=== PATIENT | male | born 1975 | race Caucasian/White ===

== ENCOUNTER 2021-09-22 19:48 | Observation (INO) ==
[2021-09-22] MEDS ORDERED: 0.9 % Sodium Chloride 1,000 ML IV ONE (20:20)
[2021-09-22 20:39] LABS: Basophils # 0.1 K/mcL (0.0-0.2); Basophils % 0.8 %; Eosinophils # 0.4 K/mcL (0.0-0.6); Eosinophils % 4.3 %; Hematocrit 41.7 % (37.5-50.1); Hemoglobin 14.4 g/dL (12.9-16.9); Immature Granulocytes % 0.7 % (0-4); Lymphocytes # 1.2 K/mcL (0.6-4.6); Lymphocytes % 13.5 %; Mean Corpuscular HGB Conc 34.5 g/dL (31.6-35.5); Mean Corpuscular Hemoglobin 31.5 pg (28.0-33.3); Mean Corpuscular Volume 91.2 fL (83.0-100.0); Mean Platelet Volume 9.4 fL (9.4-12.4); Monocytes # 0.8 K/mcL (0.0-1.3); Neutrophils # 6.4 K/mcL (1.6-8.9); Platelet Count 279 K/mcL (140-400); Red Blood Count 4.57 M/mcL (4.19-5.50); Red Cell Distribution Width 12.2 % (11.5-14.5); Segmented Neutrophils % 71.7 %
[2021-09-22 20:42] LABS: Bacteria,Urine Few per hpf (None-Few); Bilirubin,Urine Negative (Negative); Blood,Urine Negative (Negative); Clarity,Urine Clear (Clear); Color,Urine Light-Yellow (Yellow); Glucose,Urine (UA) Normal (Normal); Hyaline Casts,Urine Few per lpf (None Seen); Ketones,Urine Negative (Negative); Leukocyte Esterase,Urine Small (Negative); Mucus,Urine Few per lpf (None-Few); Nitrite,Urine Negative (Negative); Protein,Urine Negative (Neg-Trace); RBC,Urine 0-3 per hpf (0-3); Specific Gravity,Urine 1.017 (1.010-1.025); Urobilinogen,Urine Normal (Normal)
[2021-09-22 20:50] LABS: INR 1.1; Prothrombin Time 11.7 Seconds (9.4-12.1)
[2021-09-22 20:53] LABS: BUN/Creatinine Ratio 9 (6-26); Blood Urea Nitrogen 8 mg/dL (6-20); Calcium 9.2 mg/dL (8.6-10.3); Carbon Dioxide 26 mEq/L (23-29); Chloride 101 mEq/L (98-107); Glucose 121 mg/dL (70-105); Magnesium 1.9 mg/dL (1.6-2.6); Osmolality,Calculated 284 (280-300); Potassium 3.9 mEq/L (3.5-5.1); Sodium 137 mEq/L (136-145); Troponin I < 0.03 ng/mL (< 0.04); eGFR For African Americans > 60 (> 60); eGFR For Non-African Americans > 60 (> 60)
[2021-09-22 21:04] LABS: Influenza A PCR Negative (Negative); Influenza B PCR Negative (Negative); Resp. Syncytial Virus PCR Negative (Negative)
[2021-09-22 21:06] LABS: SARS-CoV-2 by PCR (In House) Negative (Negative)
[2021-09-22] MEDS ORDERED: Isovue-370 500 ML BOTTLE IVP ONE (22:15)
[2021-09-22 22:42] LABS: Ethanol 21 mg/dL (Less than 10)
[2021-09-22 23:10] LABS: Amphetamine Screen,Urine Negative ng/mL (Cutoff=1000); Barbiturate Screen,Urine Negative ng/mL (Cutoff=200); Benzodiazepines Screen,Urine Negative ng/mL (Cutoff=200); Cannabinoid Screen,Urine Negative ng/mL (Cutoff = 50); Cocaine Screen,Urine Positive ng/mL (Cutoff= 300); Opiate Screen,Urine Negative ng/mL (Cutoff=300); Phencyclidine Screen,Urine Negative ng/mL (Cutoff=25)
[2021-09-23] MEDS ORDERED: *HR* LORazepam 2 MG/ML VIAL IVP PRN ×2 (01:59)
[2021-09-23] MEDS ORDERED: 0.9 % Sodium Chloride 1,000 ML IVC SCH (02:00)
[2021-09-23] MEDS ORDERED: Naloxone 0.4 MG/ML INJ IVP PRN (02:10)
[2021-09-23] MEDS ORDERED: Ondansetron 4 MG/2 ML VIAL IVP PRN (02:15)
[2021-09-23] MEDS ORDERED: Acetaminophen 325 MG TABLET PO PRN (02:15)
[2021-09-23] MEDS ORDERED: Perflutren Lipid Microsphere 1.3 ML in 0.9 % Sodium Chloride 8.7 ML IVP PRN (02:35)
[2021-09-23 02:55] VITALS: BP 138/86; PULSE 76; TEMP 98.1; O2SAT 95
[2021-09-23] MEDS ORDERED: cefTRIAXone 1,000 MG in 0.9 % Sodium Chloride Mini Bag 100 ML IVPB ONE (04:06)
[2021-09-23 04:44] LABS: Hematocrit 42.5 % (37.5-50.1); Hemoglobin 14.2 g/dL (12.9-16.9); Mean Corpuscular HGB Conc 33.4 g/dL (31.6-35.5); Mean Corpuscular Hemoglobin 31.1 pg (28.0-33.3); Mean Platelet Volume 9.5 fL (9.4-12.4); Platelet Count 271 K/mcL (140-400); Red Blood Count 4.57 M/mcL (4.19-5.50); Red Cell Distribution Width 12.5 % (11.5-14.5); White Blood Count 7.8 K/mcL (4.3-11.1)
[2021-09-23 05:28] LABS: Amylase 22 Units/L (29-103); Lipase 9 Units/L (11-82)
[2021-09-23 05:29] LABS: BUN/Creatinine Ratio 8 (6-26); Blood Urea Nitrogen 7 mg/dL (6-20); Calcium 8.9 mg/dL (8.6-10.3); Carbon Dioxide 27 mEq/L (23-29); Chloride 105 mEq/L (98-107); Chol/HDL Ratio 1.6 (0-4.9); Cholesterol 156 mg/dL (< 200); Glucose 92 mg/dL (70-105); HDL Cholesterol 98 mg/dL (40-59); LDL Cholesterol,Calculated 49 mg/dL (< 100); Osmolality,Calculated 288 (280-300); Sodium 140 mEq/L (136-145); Triglycerides 47 mg/dL (< 150); Troponin I < 0.03 ng/mL (< 0.04); eGFR For African Americans > 60 (> 60); eGFR For Non-African Americans > 60 (> 60)
[2021-09-23 05:51] LABS: Folate 7.7 ng/mL (3.0-16.0)
[2021-09-23 05:59] LABS: Hepatitis B Surface Antigen Nonreactive (Nonreactive)
[2021-09-23 06:28] LABS: Hepatitis B Core IgM Nonreactive (Nonreactive)
[2021-09-23 06:29] LABS: HIV-1&2 Antibody & p24 Ag Nonreactive (Nonreactive); Hepatitis C Virus Antibody Nonreactive (Nonreactive)
[2021-09-23 06:30] LABS: Hepatitis A Antibody IgM Nonreactive (Nonreactive)
[2021-09-23 07:24] LABS: Chlamydia Trachomatis DNA Ur NOT DETECTED (Not Detect)
[2021-09-23 08:36] LABS: Estimated Average Glucose 97 mg/dl
[2021-09-23] MEDS ORDERED: Folic Acid 1 MG TABLET PO SCH (09:00)
[2021-09-23] MEDS ORDERED: Vitamin B Complex/Vit C/Vit E 1 EACH TABLET PO SCH (09:00)
[2021-09-23] MEDS ORDERED: Aspirin Enteric Coated 81 MG Tablet PO SCH (09:00)
[2021-09-23 12:03] LABS: Thyroid Stimulating Hormone 1.003 mcIU/mL (0.340-5.600)
== END 2021-09-23 11:07 | disposition home or self-care (01) ==
LOC: 3BNU 19:48 → EMEROOARM 19:48 → SUATTDRO 22:39 → 3BNU 23:34
PROVIDERS: ADMIT Internal Medicine; ATTEND Internal Medicine